=== PATIENT | male | born 1935 | race American Indian/Alaskan Native ===

== ENCOUNTER 2023-12-06 07:45 | Emergency (ER) | payer MEDICARE, OTHER ==
[~2023-12-06] VITALS: Ht 172.7 cm; Wt 78.4 kg
[~2023-12-06 07:45] MED LIST: ALLER-EASE180 MG PO; AMLODIPINE BES2.5 MG PO; ASPIR 8181 MG PO; GLIPIZIDE XL10 MG PO; JANUMET 50-1,01 EACH PO; LEVOTHYROXINE75 MCG PO; LIPITOR20 MG PO; METFORMIN HCL500 M1 PO; PIOGLITAZONE HC30 MG PO; VITAMIN B-122000 MC1 PO; ZESTRIL40 MG PO
[2023-12-06] MEDS ORDERED: HYDROCHLOROTH12.5 M1 PO (08:00)
[2023-12-06] MEDS ORDERED: LISINOPRIL10 MG PO (08:01)
[2023-12-06] MEDS ORDERED: LACTATED RINGER'S 1,000 ML IV ONE (08:15)
[2023-12-06] MEDS ORDERED: IBUPROFEN 600 MG TAB PO ONE (08:15)
[2023-12-06 08:37] LABS: BASOPHILS 0.3 % (0-2); EOSINOPHILS 0.1 % (0-6); HEMATOCRIT 31.2 % (35.0-50.0); HEMOGLOBIN 10.6 g/dL (12.0-18.0); LYMPHOCYTES 7.6 % (24-44); MCHC 33.9 g/dl (30-36); MCV 91.4 fl (81-99); MONOCYTES 3.8 % (0-12); NEUTROPHILS 88.2 % (39-80); PLATELET COUNT 187 K/uL (140-440); RBC 3.41 M/ul (4.3-5.7)
[2023-12-06 08:53] LABS: ALBUMIN 3.4 g/dL (3.4-5.0); ALBUMIN/GLOBULIN RATIO 0.89 (1.1-2.4); ANION GAP 16.1 (7-21); BILIRUBIN, TOTAL 0.5 ng/dL (0.2-1.0); BUN/CREATININE RATIO 24.2 (6.0-28.6); CALCIUM 8.6 mg/dL (8.5-10.1); CREATININE, SERUM 1.57 mg/dL (0.70-1.30); POTASSIUM 5.1 mmol/L (3.5-5.1); PROTEIN, TOTAL 7.2 g/dL (6.4-8.2)
[2023-12-06 08:57] LABS: LACTIC ACID, BLOOD 1.3 mmol/L (0.4-2.0)
[2023-12-06 09:21] LABS: INFLUENZA B NAA NEGATIVE (NEGATIVE); RESPIRATORY SYNCYTIAL VIR NAA NEGATIVE (NEGATIVE)
[2023-12-06] MEDS ORDERED: ZITHROMAX250 MG PO (09:59)
[2023-12-06] MEDS ORDERED: AZITHROMYCIN 250 MG TAB PO ONE (10:00)
[2023-12-06 10:16] VITALS: BP 144/87
== END 2023-12-06 10:17 | disposition home or self-care (01) ==
LOC: ED 07:45
PROVIDERS: Emergency Medicine
DX: J18.9 Pneumonia, unspecified organism (principal); I10 Essential (primary) hypertension; E11.9 Type 2 diabetes mellitus without complications; E03.9 Hypothyroidism, unspecified; E78.5 Hyperlipidemia, unspecified; Z79.82 Long term (current) use of aspirin; Z79.899 Other long term (current) drug therapy
CPT/HCPCS: 36415; 71045; 80053; 83605; 85025; 87502; A9270; J7121; U0002

== ENCOUNTER 2025-06-11 14:38 | Emergency (ER) | payer MEDICARE, OTHER ==
[~2025-06-11] VITALS: Ht 172.7 cm; Wt 78.0 kg
[~2025-06-11 14:38] MED LIST changes: +HYDROCHLOROTH12.5 M1 PO; +LISINOPRIL10 MG PO; +ZITHROMAX250 MG PO
[2025-06-11] MEDS ORDERED: METFORMIN HCL500 MG PO (15:08)
[2025-06-11] MEDS ORDERED: ALOGLIPTIN12.5 MG PO (15:11)
[2025-06-11] MEDS ORDERED: ZYRTEC10 M3 PO (15:11)
[2025-06-11] MEDS ORDERED: VITAMIN C500 M5 PO (15:11)
[2025-06-11] MEDS ORDERED: VITAMIN D350 MC3 PO (15:12)
[2025-06-11] MEDS ORDERED: IRON325 M1 PO (15:12)
[2025-06-11] MEDS ORDERED: ACETAMINOPHEN 500 MG TAB PO ONE (16:30)
[2025-06-11 17:11] LABS: INFLUENZA B NAA NEGATIVE (NEGATIVE); RESPIRATORY SYNCYTIAL VIR NAA NEGATIVE (NEGATIVE)
== END 2025-06-11 18:00 | disposition home or self-care (01) ==
LOC: ED 14:38
PROVIDERS: Emergency Medicine
DX: B34.9 Viral infection, unspecified (principal); I10 Essential (primary) hypertension; E11.9 Type 2 diabetes mellitus without complications; E78.5 Hyperlipidemia, unspecified; Z79.899 Other long term (current) drug therapy
CPT/HCPCS: 87502; 99283; A9270; U0002